=== PATIENT | male | born 1970 | race Two or more races ===

== ENCOUNTER 2024-05-03 15:06 | Emergency (ER) | payer OTHER ==
[~2024-05-03] VITALS: Ht 167.6 cm; Wt 95.7 kg
[2024-05-03 16:08] VITALS: BP 143/89; PULSE 97; RESP 20; TEMP 97.2; O2SAT 99
--- NOTE | 2024-05-03 17:32 | DVH ---
EXAM: XR Left Hand Complete, 3 or More Views CLINICAL INDICATION: crushed injury 5th phalanx TECHNIQUE: Frontal, lateral and oblique views of the left hand. COMPARISON: None FINDINGS: BONES/JOINTS: Comminuted mildly displaced fracture of the 5th distal phalanx. No dislocation. SOFT TISSUES: Soft tissue swelling. No radiopaque foreign body. OTHER FINDINGS: . IMPRESSION: Comminuted mildly displaced fracture of the 5th distal phalanx.
[2024-05-03] MEDS: LIDOCAINE 1% HCL (LOCAL ANESTH.) INJ 20ML MDV ID ONE (17:35)
[2024-05-03] MEDS: TETANUS-DIPTH-ACEL PERTUSSIS 0.5ML SYR Tdap IM ONE (17:35)
[2024-05-03] MEDS ORDERED: ACET500T58 PO (18:31)
[2024-05-03] MEDS ORDERED: CEPH500C PO (18:31)
--- NOTE | 2024-05-03 18:31 | ED.PDOC ---
Musculoskeletal HPI Comments 54 year old male presents for laceration to the L pinky trunk log fell on his distal phalanx Distal sensation intact Chief Complaint: Upper Extremity Time Seen by MD: 15:54 Reviewed Notes: Nurses Notes, Medications, Allergies Allergies: Coded Allergies: NO KNOWN ALLERGIES (Unverified , 05/03/24) Home Meds Active Scripts Cephalexin Monohydrate (Cephalexin) 500 Mg Cap, 1 CAP PO QID for 10 Days, #40 CAP 0 Refills Prov:LUCILA FRANCO SIGNS AND DISPLAYS SALES REPRESENTATIVE 05/03/24 Acetaminophen (Acetaminophen) 500 Mg Tab, 1000 MG PO TID for 10 Days, #60 TAB 0 Refills Prov:LUCILA FRANCO SIGNS AND DISPLAYS SALES REPRESENTATIVE 05/03/24 Information Source: Patient Mode of Arrival: Ambulatory Family History Family History: Reviewed,noncontributory to illness All Other Systems: Reviewed and Negative (per hpi) Physical Exam General Appearance: No Apparent Distress, Normal HEENT: Normal ENT Inspection, Pharynx Normal, TMs Normal Neck: Full Range of Motion, Non-Tender, Normal, Normal Inspection Respiratory: Chest Non-Tender, Lungs Clear, No Accessory Muscle Use, No Respiratory Distress, Normal Breath Sounds Cardiovascular: No Edema, No JVD, No Murmur, No Gallop, Regular Rate/Rhythm Breast Exam: Deferred Gastrointestinal: No Organomegaly, Non Tender, No Pulsatile Mass, Normal Bowel Sounds, Soft Genitalia: Deferred Pelvic: Deferred Rectal: Deferred Extremities: No calf tenderness, Normal capillary refill, Normal inspection, Normal range of motion, Non-tender, No pedal edema Musculoskeletal : Location: Left Extremity Location: Finger 4 (laceration. hemostasis. distal sensation intact. ) Apperance: Normal Neurologic: Alert, student outreach coordinator II-XII nml as Tested, No Motor Deficits, Normal Affect, Normal Mood, No Sensory Deficits Cerebellar Function: Normal Reflexes: Normal Skin: Dry, Normal Color, Warm Lymphatic: No Adenopathy Was a procedure done? Was a procedure done?: Yes Sedation Sedation?: No Laceration Repair : Location left hand Length 3 Anesthetic: Lidocaine Laceration Repair Prep: Saline, Betadine, by Irrigation, Manual Scrub Laceration Repair Wound Comple: epidermis/dermis repair Laceration Repair: Number of sutures (4), Skin, Simple, Bacitracin, Non- adherent gauze, Gauze Informed consent obtained: Yes Risks, benefits, and alternati: Yes Differential Diagnosis EXT Differential Diagnosis: Fracture, Sprain, Dislocation X-Ray, Labs, Meds, VS Vital Signs Date Time Temp Pulse Resp B/P (MAP) Pulse Ox O2 Delivery O2 Flow Rate FiO2 05/03/24 16:08 97.2 97 20 143/89 (107) 99 97.2 05/03/24 16:08 97 20 99 Room Air 05/03/24 15:31 97.2 97 20 143/89 (107) 99 PATIENT: JESSIE QUINTEROCCT: [id number]: [id number] : 1970 LOC: ER ROOM / BED: / AGE / SEX: 54 / M ADM STATUS: REG ER SERVICE 49 ORDERING PHYSICIAN: LUCILA FRANCO NP PROCEDURE(s): LHAN - L HAND 3V XRAY REASON: crushed injury 5th phalanx ORDER NUMBER(s): [id number], ACCESSION NUMBER(s): [id number] EXAM: XR Left Hand Complete, 3 or More Views CLINICAL INDICATION: crushed injury 5th phalanx TECHNIQUE: Frontal, lateral and oblique views of the left hand. COMPARISON: None FINDINGS: BONES/JOINTS: Comminuted mildly displaced fracture of the 5th distal phalanx. No dislocation. SOFT TISSUES: Soft tissue swelling. No radiopaque foreign body. OTHER FINDINGS: . IMPRESSION: Comminuted mildly displaced fracture of the 5th distal phalanx. ATED BY: TUTU BROWN MD DICTATED DATE/TIME: 05/03/241729 SIGNED BY: TUTU BROWN MD SIGNED DATE/TIME: 05/03/241729 CC: X-Ray, Labs, Meds, VS Comment Comminuted mildly displaced fracture of the 5th distal phalanx. The skin edges of the laceration were infiltrated with 1% lidocaine The skin surrounding the laceration was scrubbed with Betadine soaked sterile gauze The laceration was irrigated under high-pressure with a 60 mL syringe A total of 1L sterile water was used. Including diluted Betadine solution The laceration was prepped in sterile fashion with sterile drapes On examination under direct light, there was no foreign body seen The laceration was repaired in simple interrupted technique There was no continuing bleeding on repair. There were no complications related to repair TDAP updated ABx rx Education and follow-up instructions provided Wound check in 2 days Return sooner for signs of infection such as fevers, increased pain, redness, green, yellow discharge, or any concerns Keep wound dry for 24 to 48 hours; dry dressing may be changed Protect from sunlight and keep area clean and dry. Use soap and water if it gets dirty High risk of possible scarring and education provided on ways to minimize scarring after wound heals Also provided education on possible complications post procedure including wound dehiscence, infection, etc. Time of 1ST Reevaluation: 18:30 Reevaluation 1ST: Improved Patient Education/Counseling: Diagnosis, Treatment Family Education/Counseling: Diagnosis, Treatment Departure 1 Departure Time of Disposition: 18:30 Impression: Primary Impression: Open comminuted fracture of distal phalanx of finger Disposition: 01 HOME / SELF CARE / HOMELESS Condition: Stable e-Prescriptions Cephalexin Monohydrate (Cephalexin) 500 Mg Cap 1 CAP PO QID for 10 Days, #40 CAP 0 Refills Prov: LUCILA FRANCO NP 05/03/24 Acetaminophen (Acetaminophen) 500 Mg Tab 1000 MG PO TID for 10 Days, #60 TAB 0 Refills Prov: LUCILA FRANCO NP 05/03/24 Critical Care Note Critical Care Time?: No Stability Stability form required: No Heart Score Heart Score: Heart Score Response (Comments) Value History N/A 0 EKG N/A 0 Age N/A 0 Risk Factors N/A 0 Troponin N/A 0 Total 0 LUCILA FRANCO NP May 03, 2024 18:31
[2024-05-03] MEDS: ceFAZolin 1GM/50ML 50 ML IV ONE ×2 (19:26)
== END 2024-05-03 20:06 | disposition home or self-care (01) ==
LOC: ER 15:06
DX: S62.637B Displaced fracture of distal phalanx of left little finger, initial encounter for open fracture (principal); W20.8XXA Other cause of strike by thrown, projected or falling object, initial encounter; Y93.89 Activity, other specified; Y92.89 Other specified places as the place of occurrence of the external cause; Y99.8 Other external cause status
CPT/HCPCS: 12002; 73130; 90471; 90715; 96365; 99284; J2003